=== PATIENT | male | born 1955 | race American Indian/Alaskan Native ===

== ENCOUNTER 2019-04-07 16:53 | Emergency (ER) | payer MEDICARE ==
[2019-04-07 17:04] VITALS: BP 116/78
--- NOTE | 2019-04-07 17:30 | Emergency Department Report ---
ED General Adult HPI - General Chief complaint: Rectal Pain Stated complaint: RECTUM BLEEDING Time Seen by Provider: 04/07/19 17:23 Source: patient Mode of arrival: Ambulatory Limitations: No Limitations - History of Present Illness Initial comments: 64-year-old -[place] male patient without significant past medical history presents with complaints of rectal bleeding occurring today. Patient states bleeding randomly occurred without him having a bowel movement. He states he just felt something wet in his rectal area and noted blood on his underwear. He denies any previous history of hemorrhoids, but states last week he was constipated and while straining to use the restroom felt a nodule appear around his anus. He denies any abdominal pain, blood in his stools, melena, nausea/vomiting, rectal pain, dizziness, or fever. He states there is only blood in his underwear and when he wipes with tissue. Patient denies any blood thinners, back injury/pain, loss of bladder/bowel control, numbness/tingling/numbness in his legs. -: Sudden Severity scale (0 -10): 0 Associated Symptoms: denies other symptoms Treatments Prior to Arrival: none - Related Data Previous Rx's Medication Instructions Recorded Last Taken Type Docusate Sodium [Colace] 100 mg PO BID 15 Days #30 capsule 04/07/19 Unknown Rx Hydrocortisone [Anusol-Hc 2.5% TOP 30 gm RC BID 5 Days #20 cream..g. 04/07/19 Unknown Rx CREAM] Lactulose 10 gm PO QDAY PRN #6 packet 04/07/19 Unknown Rx Allergies Allergy/AdvReac Type Severity Reaction Status Date / Time No Known Allergies Allergy Unverified 04/07/19 16:59 ED Review of Systems ROS: Stated complaint: RECTUM BLEEDING Other details as noted in HPI Comment: All other systems reviewed and negative Gastrointestinal: as per HPI Neurological: denies: numbness, paresthesias Hematological/Lymphatic: denies: easy bleeding, easy bruising ED Past Medical Hx - Past Medical History Previous Medical History?: No - Surgical History Past Surgical History?: No - Social History Smoking Status: Never Smoker Substance Use Type: None - Medications Home Medications: Home Medications Medication Instructions Recorded Confirmed Last Taken Type Docusate Sodium [Colace] 100 mg PO BID 15 Days #30 capsule 04/07/19 Unknown Rx Hydrocortisone [Anusol-Hc 2.5% TOP 30 gm RC BID 5 Days #20 cream..g. 04/07/19 Unknown Rx CREAM] Lactulose 10 gm PO QDAY PRN #6 packet 04/07/19 Unknown Rx ED Physical Exam - General Limitations: No Limitations General appearance: alert, in no apparent distress - Head Head exam: Present: atraumatic, normocephalic - Eye Eye exam: Present: normal appearance. Absent: scleral icterus - Respiratory Respiratory exam: Present: normal lung sounds bilaterally. Absent: respiratory distress - Cardiovascular Cardiovascular Exam: Present: regular rate, normal rhythm - GI/Abdominal GI/Abdominal exam: Present: soft, normal bowel sounds. Absent: distended, t enderness, guarding, rebound, rigid - Rectal Rectal exam: Present: hemorrhoids (single external hemorrhoid noted, mild bleeding occurs with palpation) - Neurological Exam Neurological exam: Present: alert, oriented X3, normal gait - Psychiatric Psychiatric exam: Present: normal affect, normal mood - Skin Skin exam: Present: warm, dry, intact, normal color. Absent: rash, cyanosis, diaphoretic ED Course Vital Signs 04/07/19 16:59 Temperature 98.3 F Pulse Rate 84 Respiratory 16 Rate Blood Pressure 116/78 O2 Sat by Pulse 97 Oximetry ED Medical Decision Making - Medical Decision Making Patient presents with rectal bleeding today. He denies any red flag symptoms, pain, or hematochezia. Patient reports constipation last week that resulted in a nodule near his anus. Single external hemorrhoid noted on exam has mild bleeding with palpation. Patient denies blood thinners. Vitals are WNL. Patient to try lactulose, Colace, and Anusol for now. Will DC home with follow- up with Gen. surgery for further evaluation. Strict return precautions were discussed in detail with pt who states understanding Critical care attestation.: If time is entered above; I have spent that time in minutes in the direct care of this critically ill patient, excluding procedure time. ED Disposition Clinical Impression: Bleeding external hemorrhoids Disposition: [id number] TO HOME OR SELFCARE Is pt being admited?: No Does the pt Need Aspirin: No Condition: Stable Instructions: Hemorrhoids (ED) Prescriptions: Hydrocortisone [Anusol-Hc 2.5% TOP CREAM] 30 gm RC BID 5 Days #20 cream..g. Docusate Sodium [Colace] 100 mg PO BID 15 Days #30 capsule Lactulose 10 gm PO QDAY PRN #6 packet PRN Reason: Constipation Referrals: JOSE MIGUEL AMAYA DO [Staff Physician] - 3-5 Days
== END 2019-04-07 17:47 | disposition home or self-care (01) ==
LOC: ED 16:53
DX: K64.4 Residual hemorrhoidal skin tags (principal)